=== PATIENT | female | born 1990 | race African-American/Black ===

== ENCOUNTER 2016-09-19 12:16 | Emergency (ER) | payer OTHER ==
[~2016-09-19] VITALS: Ht 160 cm; Wt 61.7 kg
[2016-09-19] MEDS ORDERED: TRINATE TABLET1 TAB PO (12:20)
[2016-09-19] MEDS ORDERED: IBUPROFEN 600600 M1 PO (13:23)
[2016-09-19 13:41] LABS: URINE BILIRUBIN NEGATIVE (Negative); URINE BLOOD 3+ (Negative); URINE COLOR YELLOW; URINE GLUCOSE-RANDOM* NEGATIVE (Negative); URINE KETONES NEGATIVE (Negative); URINE LEUKOCYTES-REFLEX NEGATIVE (Negative); URINE PROTEIN (DIPSTICK) NEGATIVE (Negative); URINE UROBILINOGEN 0.2 E.U./dl (0.2-1.0)
[2016-09-19 13:45] LABS: HEMATOCRIT 38.6 % (37.0-47.0); HEMOGLOBIN 13.2 gm/dL (12.0-15.0); MCH 30.7 pg (26.0-34.0); MCHC 34.2 g/dL (28.0-37.0); RBC 4.29 mil/uL (4.20-5.00); RDW 13.2 % (10.5-14.5); WBC 6.1 thou/uL (4.0-11.0)
[2016-09-19 13:46] LABS: SQUAMOUS 4-10 Moderate /LPF (0-3); URINE RBC 0-2 Rare /HPF (0-2); URINE WBC-REFLEX None Seen /HPF (0-5)
[2016-09-19 13:47] LABS: CASTS None Seen /LPF (None Seen); CRYSTALS None Seen /LPF (None Seen)
[2016-09-19 13:57] LABS: CALCIUM 9.4 mg/dL (8.5-10.1); CREATININE 0.7 mg/dL (0.6-1.0); POTASSIUM 3.9 mmol/L (3.5-5.1)
[2016-09-19] MEDS ORDERED: NORCO 5-325 TA1 EACH PO (15:43)
[2016-09-19 15:53] VITALS: BP 105/70
== END 2016-09-19 15:54 | disposition home or self-care (01) ==
LOC: ER 12:16
PROVIDERS: Emergency Medicine
DX: O02.1 Missed abortion (principal); Z3A.01 Less than 8 weeks gestation of pregnancy